=== PATIENT | male | born 1960 | race Caucasian/White ===

== ENCOUNTER 2016-05-01 18:16 | Emergency (ER) | payer OTHER ==
[~2016-05-01] VITALS: Ht 167.6 cm; Wt 77.1 kg
[2016-05-01 18:24] VITALS: BP 134/78
[2016-05-01 20:39] VITALS: BP 134/78
--- NOTE | 2016-05-01 22:02 | Emergency Room Report ---
History of Present Illness General Chief Complaint: Alcohol Intoxication Source: Patient, EMS Present Illness HPI The pt is a 56 yo M BIBA for possible alcohol intoxication. The pt has been seen in this ER many times for the same complaint. The pt is uncooperative at this time and continues to yell out profanities. Denies complaints. Allergies: Coded Allergies: No Known Allergies (Unverified , 05/01/16) Patient History Past Medical History: see triage record Social History: Reports: alcohol use Reviewed Nursing Documentation: PMH: Agreed, PSxH: Agreed Nursing Documentation-PMH Hx Diabetes: Yes Review of Systems All Other Systems: negative except mentioned in HPI Physical Exam Vital Signs Date Time Temp Pulse Resp B/P Pulse Ox O2 Delivery O2 Flow Rate FiO2 05/01/16 18:12 97.5 108 16 144/88 99 05/01/16 18:24 Room Air Sp02 EP Interpretation: reviewed, normal General Appearance: no apparent distress, alert, lethargic Head: normocephalic, atraumatic Eyes: bilateral eye PERRL, bilateral eye normal inspection ENT: hearing grossly normal, normal pharynx, no angioedema, normal voice Neck: full range of motion, supple/symm/no masses Respiratory: chest non-tender, lungs clear, normal breath sounds, speaking full sentences Cardiovascular #1: regular rate, rhythm, no edema Genitourinary: normal inspection, no CVA tenderness Musculoskeletal: back normal, gait/station normal, normal range of motion, non- tender Neurologic: responsive, sensory intact, normal gait - at time of DC Psychiatric: no suicidal/homicidal ideation Skin: normal color, no rash, warm/dry, well hydrated Lymphatic: no adenopathy Medical Decision Making PA Attestation Dr. Everett is my supervising physician. Patient management was discussed with my supervising physician Diagnostic Impression: Primary Impression: Acute alcoholic intoxication ER Course The pt is a 56 yo M BIBA for possible alcohol intoxication. DDx considered but not limited to: acute alcohol intoxication, hepatic encephalopathy, drug overdose, hypoglycemia, psychosis PE: Vitals WNL. NAD. Lethargic. Head NC/AT. PERRL. Responsive to commands. Lungs CTA bilat. RRR. The pt is given time to rest in the ER and will be DC'ed when alert, oriented, and able to ambulate well. The pt is now asking to leave and has improved in mental status. Able to ambulate well. Last Vital Signs Date Time Temp Pulse Resp B/P Pulse Ox O2 Delivery O2 Flow Rate FiO2 05/01/16 20:39 99.1 81 13 134/78 98 Room Air Status: improved Disposition: HOME, SELF-CARE Condition: Improved Referrals: NOT CHOSEN [facility]/MD,REFERRING (PCP) Patient Instructions: Alcohol Intoxication Additional Instructions: My findings were discussed with the patient. Patient was counseled to seek help for alcohol abuse. Patient is stable for discharge, is alert and oriented, and can ambulate without difficulty. Patient is asked to return to ED if he experiences chest pain, abdominal pain, dizziness, falls down, or for any reason. DORINA LABOY May 01, 2016 22:02
== END 2016-05-01 20:39 | disposition home or self-care (01) ==
LOC: EDBD 18:16 → EMR 18:39
DX: F10.129 Alcohol abuse with intoxication, unspecified (principal); E11.9 Type 2 diabetes mellitus without complications
CPT/HCPCS: 99282

== ENCOUNTER → 2016-06-09 | Emergency (ER) | payer OTHER ==
[~2016-06-09] VITALS: Ht 160 cm; Wt 63.5 kg
--- NOTE | 2016-06-09 21:25 | Emergency Room Report ---
History of Present Illness General Chief Complaint: Alcohol Intoxication Present Illness Allergies: Coded Allergies: No Known Allergies (Unverified , 05/01/16) Nursing Documentation-PMH Hx Diabetes: Yes Medical Decision Making Diagnostic Impression: Primary Impression: lwbs ER Course Patient refusing examination refused initial triage vital signs Eloped, left without being seen Status: other Disposition: LEFT W/OUT BEING SEEN Condition: Unknown Referrals: [facility],REFERRING (PCP) BRUNO CARDENAS D.O. Jun 09, 2016 21:25
== END | disposition left against medical advice (07) ==
LOC: EDUNIT# 19:17 → EDBD 19:20 → EMR 20:12
DX: F10.129 Alcohol abuse with intoxication, unspecified (principal); Z53.21 Procedure and treatment not carried out due to patient leaving prior to being seen by health care provider
CPT/HCPCS: 99281

== ENCOUNTER 2018-07-22 14:01 | Emergency (ER) | payer OTHER ==
[~2018-07-22] VITALS: Ht 170.2 cm; Wt 79.4 kg
--- NOTE | 2018-07-22 14:01 | NUR ---
ED Nurse Note: Pt brought in by ambulance from the street due to unsteady gait. Per EMS, pt was found sleeping on a sidewalk in front of a store by the butcher or smallgoods maker and asked the pt to leave, but pt presented with unsteady gait. Pt is AAOx4, able to answer questions. No respiratory distress.
--- NOTE | 2018-07-22 14:15 | NUR ---
ED Nurse Note: Pt is uncooperative and unable to take EKG and blood works/urine at this time. Dr Han is aware and is okay without blood works/urine and EKG if the pt continuously refuses and uncooperate.
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
--- NOTE | 2018-07-22 14:28 | NUR ---
ED Nurse Note: Patient taken to CT via gurney.
--- NOTE | 2018-07-22 14:40 | NUR ---
ED Nurse Note: Pt came back from CT and more relaxed.
--- NOTE | 2018-07-22 14:49 | NUR ---
ED Nurse Note: Blood collected and sent.
[2018-07-22 14:59] LABS: BASOPHILS % (AUTO) 1.1 % (0.0-2.0); EOSINOPHILS % (AUTO) 6.1 % (0.0-3.0); HEMATOCRIT 34.1 % (42.0-52.0); HEMOGLOBIN 11.7 G/DL (14.2-18.0); LYMPHOCYTES % (AUTO) 37.1 % (20.0-45.0); MEAN CORPUSCULAR VOLUME 91 FL (80-99); MONOCYTES % (AUTO) 9.6 % (1.0-10.0); NEUTROPHILS % (AUTO) 46.2 % (45.0-75.0); PLATELET COUNT 415 K/UL (150-450); RED BLOOD COUNT 3.73 M/UL (4.70-6.10); RED CELL DISTRIBUTION WIDTH 12.8 % (11.6-14.8); WHITE BLOOD COUNT 8.8 K/UL (4.8-10.8)
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
[2018-07-22 15:18] LABS: ANION GAP 11 mmol/L (5-15); BLOOD UREA NITROGEN 20 mg/dL (7-18); CALCIUM 8.1 MG/DL (8.5-10.1); CARBON DIOXIDE 25 MMOL/L (21-32); CHLORIDE 105 MMOL/L (98-107); POTASSIUM 3.9 MMOL/L (3.5-5.1); SODIUM 141 MMOL/L (136-145)
[2018-07-22 15:24] LABS: ALANINE AMINOTRANSFERASE 17 U/L (12-78); ALBUMIN 2.4 G/DL (3.4-5.0); ALBUMIN/GLOBULIN RATIO 0.5 (1.0-2.7); ALKALINE PHOSPHATASE 73 U/L (46-116); ASPARTATE AMINO TRANSFERASE 24 U/L (15-37); BILIRUBIN,TOTAL 0.5 MG/DL (0.2-1.0)
--- NOTE | 2018-07-22 17:18 | NUR ---
ED Nurse Note: Pt ambulated with steady gait. Dr Han and charge nurse Rosi notified.
[2018-07-22 17:33] VITALS: BP 139/90
--- NOTE | 2018-07-22 17:33 | NUR ---
ER DISCHARGE NOTE: Patient is cleared to be discharged per ERMD, pt is aox4, on room air, with stable vital signs. pt was given dc instructions but refused to sign in DC paper and homeless form. pt was able to verbalize understanding, pt id band and iv site removed without complications. pt is able to ambulate with steady gait. pt took all belongings.
== END 2018-07-22 17:33 | disposition home or self-care (01) ==
LOC: EDBD 14:01 → EMR 14:07 → MERGE 14:07 → EDBD 14:07 → EMR 17:33
DX: F10.129 Alcohol abuse with intoxication, unspecified (principal); E11.9 Type 2 diabetes mellitus without complications
CPT/HCPCS: 36415; 70450; 80053; 80329; 82962; 85025; 93005; 99284